=== PATIENT | female | born 1990 | race African-American/Black ===

== ENCOUNTER 2017-01-02 06:38 | Inpatient (IN) | payer BC ==
[~2017-01-02] VITALS: Ht 167.6 cm; Wt 75.0 kg
[2017-01-02] VITALS (8 sets, daily range): BP systolic 105–118; BP diastolic 58–71
[~2017-01-02 06:38] MED LIST: ASPIR 8181 M1 PO; BACTRIM,SEPT1 TABLET PO; ENDOCET 5-3251 EACH PO; FOLIC ACID1 MG PO; IBUPROFEN800 MG PO; MILK OF MAGN PO; PRENATAL TABLE1 EAC3 PO; VITAMIN D32000 UNI1 PO
[2017-01-02] MEDS ORDERED: ENDOCET 5-3251 EACH PO (09:23)
[2017-01-02] MEDS ORDERED: IBUPROFEN800 MG PO (09:23)
[2017-01-03 06:04] LABS: EOSINOPHIL (%) 0.7 % (0-5); EOSINOPHIL COUNT 0.1 K/uL (0-0.3); HEMATOCRIT 26.8 % (36.0-46.0); IMMATURE GRANULOCYTE (%) 0.4 % (0.0-0.7); IMMATURE GRANULOCYTE COUNT 0.1 K/uL; INSTRUMENT ABS NEUTROPHIL CT 8.3 K/uL; LYMPHOCYTE COUNT 2.4 K/uL (1.0-2.8); MCH 32.7 PG (29.0-34.0); MCV 96.4 FL (83-99); MEAN PLAT.VOLUME 9.7 uM^3 (9.5-12.4); MONOCYTE (%) 7.3 % (3-12); MONOCYTE COUNT 0.9 K/uL (0-0.8); NEUTROPHIL (%) 70.8 % (45-76); NEUTROPHIL COUNT 8.3 K/uL (1.8-6.4); PLATELET COUNT 163 K/uL (156-360); RBC DIS.WIDTH-CV 15.1 % (11.8-14.6); RBC DIS.WIDTH-SD 52.9 % (39-53); WHITE BLOOD COUNT 11.7 K/uL (4.1-10.2)
[2017-01-03 06:08] LABS: RED BLOOD COUNT 2.78 M/uL (3.80-5.20)
[2017-01-03 07:39] VITALS: BP 98/58
[2017-01-03 11:29] VITALS: BP 98/53
[2017-01-03 15:31] VITALS: BP 99/58
[2017-01-03 19:00] VITALS: BP 103/64
[2017-01-03 23:00] VITALS: BP 106/62
[2017-01-04 03:00] VITALS: BP 111/58
[2017-01-04 08:33] VITALS: BP 111/65
[2017-01-04 15:04] VITALS: BP 107/51
[2017-01-04 23:03] VITALS: BP 108/56
[2017-01-05 08:09] VITALS: BP 110/67
== END 2017-01-05 15:50 | disposition home or self-care (01) | DRG 766 ==
LOC: 2WEST 06:38 → 2SOUTH 09:34 → 2WEST 01-05 15:50
PROVIDERS: Obstetrics & Gynecology
PROC: 10D00Z1 Extraction of Products of Conception, Low, Open Approach (ICD-10-PCS; principal; 2017-01-02)
DX: O30.093 Twin pregnancy, unable to determine number of placenta and number of amniotic sacs, third trimester (principal); Z3A.37 37 weeks gestation of pregnancy; Z37.2 Twins, both liveborn; O32.1XX2 Maternal care for breech presentation, fetus 2; O99.824 Streptococcus B carrier state complicating childbirth; Z82.49 Family history of ischemic heart disease and other diseases of the circulatory system; I49.1 Atrial premature depolarization; Z83.3 Family history of diabetes mellitus; Z23 Encounter for immunization
CPT/HCPCS: 36415; 59025; 85025; 86850; 86900; 86901; 88307; 90686; J0690; J1100; J2274; J2405; J7120